=== PATIENT | female | born 1955 | race African-American/Black ===

== ENCOUNTER 2020-08-21 08:25 | Outpatient (REF) | payer MEDICARE, SELFPAY ==
[2020-08-21 09:28] LABS: Alanine Aminotransferase 10 U/L (0-31); Albumin Level 3.7 g/dL (3.5-5.0); Alkaline Phosphatase 141 U/L (39-117); Anion Gap 12 (12-20); Aspartate Amino Transferase 16 U/L (5-31); Bilirubin Total 0.4 mg/dL (0.0-1.0); Blood Urea Nitrogen 6 mg/dL (9-16); Carbon Dioxide 30 mmol/L (22-29); Chloride 107 mmol/L (96-108); Cholesterol 166 mg/dL; Estimated Glomerular Filt Rate > 60; Glucose Fasting 83 mg/dL (60-99); HDL Cholesterol 56 mg/dL; LDL Cholesterol Calculated 102 mg/dl; Potassium 4.6 mmol/l (3.3-5.1); Sodium 144 mmol/L (135-145); Triglycerides 41 mg/dL
[2020-08-21 09:51] LABS: Vitamin D 25-OH Total 22.6 ng/mL (>30)
== END 2020-08-21 08:26 | disposition home or self-care (01) ==
LOC: HO.LAB 08:25
PROVIDERS: PCP Internal Medicine; Visit Provider Internal Medicine
DX: E78.00 Pure hypercholesterolemia, unspecified (principal); E55.9 Vitamin D deficiency, unspecified
CPT/HCPCS: 80053; 80061; 82306

== ENCOUNTER 2020-09-17 11:31 | Outpatient (REF) | payer MEDICARE, SELFPAY ==
--- NOTE | 2020-09-17 11:34 | MM_ITS ---
EXAMINATION: MM SCREENING DIGITAL BREAST TOMOSYNTHESIS, RIGHT CLINICAL INFORMATION: Remote history left mastectomy 1972. Due for yearly. COMPARISON: Outside mammography 02/02/2018, 12/25/2015 ([facility]). TECHNIQUE: Digital breast tomosynthesis is performed in both the craniocaudal and mediolateral oblique views along with computer-aided detection (CAD). Synthesized 2D images are generated from the tomosynthesis. FINDINGS: There are scattered areas of fibroglandular density (ACR BI-RADS breast composition Category b). There are no significant masses, abnormal calcifications, or other abnormalities. Parenchymal pattern is similar to outside exams. The axilla and skin contours are unremarkable. MM/MM tomosynthesis screening RT IMPRESSION: No significant changes from prior outside exams. ASSESSMENT: BI-RADS 1: Negative RECOMMENDATION: Routine annual mammography screening. This patient's information was entered into a reminder system with a target due date for their next mammogram.
== END 2020-09-17 11:32 | disposition home or self-care (01) ==
LOC: HO.MAMMO 11:31
PROVIDERS: PCP Internal Medicine; Visit Provider Internal Medicine
DX: Z12.31 Encounter for screening mammogram for malignant neoplasm of breast (principal)
CPT/HCPCS: 77067

== ENCOUNTER 2020-10-18 12:46 | Outpatient (REF) | payer MEDICARE, MEDICAID, SELFPAY | END 2020-10-18 12:47 | disposition home or self-care (01) | LOC: HO.LNP 12:46 | PROVIDERS: Visit Provider Internal Medicine | DX: D47.2 Monoclonal gammopathy (principal) | CPT/HCPCS: 86335 ==

== ENCOUNTER 2020-11-07 08:48 | Outpatient (REF) | payer MEDICARE, MEDICAID, SELFPAY ==
[2020-11-07 10:28] LABS: Alanine Aminotransferase 14 U/L (0-31); Albumin Level 3.7 g/dL (3.5-5.0); Alkaline Phosphatase 137 U/L (39-117); Anion Gap 10 (12-20); Aspartate Amino Transferase 17 U/L (5-31); Bilirubin Total 0.5 mg/dL (0.0-1.0); Blood Urea Nitrogen 6 mg/dL (9-16); Calcium 9.3 mg/dL (8.4-10.2); Carbon Dioxide 30 mmol/L (22-29); Chloride 105 mmol/L (96-108); Estimated Glomerular Filt Rate > 60; Glucose Random 85 mg/dL (60-115); Potassium 4.4 mmol/L (3.3-5.1); Sodium 141 mmol/L (135-145)
[2020-11-07 11:04] LABS: Thyroid Stimulating Hormone 1.16 uIU/mL (0.32-4.0)
[2020-11-07 12:08] LABS: T4 Thyroxine 6.8 ug/dL (4.5-12.0)
[2020-11-09 04:14] LABS: Folate > 20.0 ng/mL (> or = 4.0); Vitamin B12 295 pg/mL (200-900)
== END 2020-11-07 08:49 | disposition home or self-care (01) ==
LOC: HO.LAB 08:48
PROVIDERS: PCP Internal Medicine; Visit Provider Psychiatry & Neurology Neurology
DX: G31.84 Mild cognitive impairment of uncertain or unknown etiology (principal)
CPT/HCPCS: 36415; 80053; 82607; 82746; 84436; 84443

== ENCOUNTER 2020-11-30 10:42 | Outpatient (REF) | payer MEDICARE, OTHER, SELFPAY ==
--- NOTE | ~2020-11-30 | CT_ITS ---
EXAMINATION: CT HEAD WITHOUT CONTRAST CLINICAL INFORMATION: Mild cognitive impairment COMPARISON: Previous brain MRI May [address] March 2016 TECHNIQUE: Contiguous axial imaging was performed from the skull base to vertex without intravenous administration of contrast. This CT examination was performed using dose optimization techniques as appropriate, variously including the following: *Automated exposure control *Adjustment of mA and/or kV according to patient size (this includes techniques or standardized protocols for targeted exams where dose is matched to indication/reason for exam; i.e. extremities or head) *Use of iterative reconstruction technique DLP: 636 mGy-cm FINDINGS: There is no evidence of an extra-axial collection. There is no evidence of intra-axial or extra-axial hemorrhage. The ventricles and extra-axial CSF spaces are slightly prominent suggestive of mild generalized atrophy. There is nonspecific periventricular white matter disease. No mass, mass effect or infarct is seen. There is evidence of atherosclerotic disease. There is soft tissue opacification of the left maxillary sinus. There is adjacent bony cortical thickening suggestive of chronic sinus disease. The visualized paranasal sinuses, mastoid air cells and middle ears are clear. No skull fracture is seen. CT/CT head/brain wo con IMPRESSION: Mild generalized atrophy and nonspecific periventricular white matter disease. Inflammatory changes of the left maxillary sinus, probably chronic.
== END 2020-11-30 10:43 | disposition home or self-care (01) ==
LOC: HO.CT 10:42
PROVIDERS: Visit Provider Psychiatry & Neurology Neurology
DX: G31.84 Mild cognitive impairment of uncertain or unknown etiology (principal)
CPT/HCPCS: 70450

== ENCOUNTER 2021-10-01 08:30 | Outpatient (REF) | payer MEDICARE, MEDICAID, SELFPAY ==
--- NOTE | ~2021-10-01 | MM_ITS ---
EXAMINATION: MM SCREENING DIGITAL BREAST TOMOSYNTHESIS, RIGHT CLINICAL INFORMATION: Remote left mastectomy, 1972. Due for yearly exam. COMPARISON: Mammography: 09/17/2020, 02/02/2018, 12/27/2016 TECHNIQUE: Digital breast tomosynthesis is performed in both the craniocaudal and mediolateral oblique views along with computer-aided detection (CAD). Synthesized 2D images are generated from the tomosynthesis. FINDINGS: There are scattered areas of fibroglandular density (ACR BI-RADS breast composition Category b). There are no significant masses, abnormal calcifications, or other abnormalities. MM/MM tomosynthesis screening RT IMPRESSION: No mammographic evidence of malignancy. ASSESSMENT: BI-RADS 1: Negative RECOMMENDATION: Routine annual mammography screening. This patient's information was entered into a reminder system with a target due date for their next mammogram.
== END 2021-10-01 08:31 | disposition home or self-care (01) ==
LOC: HO.MAMMO 08:30
PROVIDERS: Visit Provider Internal Medicine
DX: Z12.31 Encounter for screening mammogram for malignant neoplasm of breast (principal)
CPT/HCPCS: 77063; 77067

== ENCOUNTER 2022-01-19 08:12 | Outpatient (REF) | payer MEDICARE, SELFPAY ==
[2022-01-19 09:30] LABS: Alanine Aminotransferase 15 U/L (0-31); Albumin Level 3.9 g/dL (3.5-5.0); Alkaline Phosphatase 124 U/L (39-117); Anion Gap 12 (12-20); Aspartate Amino Transferase 20 U/L (5-31); Bilirubin Total 0.6 mg/dL (0.0-1.0); Blood Urea Nitrogen 8 mg/dL (9-16); Calcium 9.8 mg/dL (8.4-10.2); Carbon Dioxide 28 mmol/L (22-29); Chloride 106 mmol/L (96-108); Cholesterol 145 mg/dL; Estimated Glomerular Filt Rate > 60; Glucose Fasting 91 mg/dL (60-99); HDL Cholesterol 48 mg/dL; LDL Cholesterol Calculated 86 mg/dl; Potassium 3.7 mmol/L (3.3-5.1); Sodium 142 mmol/L (135-145); Total Protein 7.2 g/dL (6.5-8.0); Triglycerides 55 mg/dL
[2022-01-24 14:52] LABS: Vitamin D 25-OH, D2 <4 ng/mL; Vitamin D 25-OH, D3 28 ng/mL; Vitamin D 25-OH, Total 28 ng/mL (30-100)
== END 2022-01-19 08:13 | disposition home or self-care (01) ==
LOC: HO.LAB 08:12
PROVIDERS: PCP Internal Medicine; Visit Provider Internal Medicine
DX: E55.9 Vitamin D deficiency, unspecified (principal); E78.5 Hyperlipidemia, unspecified; I10 Essential (primary) hypertension
CPT/HCPCS: 36415; 80053; 80061; 82306

== ENCOUNTER → 2022-04-07 13:45 | Outpatient (REF) | payer MEDICARE, SELFPAY ==
--- NOTE | 2022-04-07 13:49 | CA_ITS ---
Transthoracic Echocardiogram Patient (Last, First, Middle): Francisca Ybarra R Gender: Female Date of : 1955 Age: 66 Procedure Date: 04/07/2022 Procedure Type: Transthoracic Echocardiogram Location: OP Height: 170.18 cm Weight: 79.38 kg BSA: 1.91 m2 Heart Rate: 54 bpm BP: 130 / 80 mmHg Director Risk: SARI Referring MD: Nya Rhodes MD Wellness Program Administrator: Manuel Quinn MD Symptoms: R01.1 - Cardiac murmur, unspecified Study Quality: Adequate ECG Rhythm: Bradycardia Conclusions: - 1. Normal LV systolic function with impaired relaxation filling pattern 2. Normal cardiac valvular Doppler 3. Normal RV systolic pressure 4. No pericardial effusion Findings Left Ventricle Normal left ventricular size, thickness, and systolic function. The visually estimated ejection fraction is between 65-70%. Spectral Doppler is indicative of an impaired relaxation filling pattern. E/E prime ratio is between 8 and 15 consistent with indeterminate filling pressures. Right Ventricle Normal right ventricular cavity size and systolic function. Atria The left atrium is normal in size. There is a mobile atrial septum noted. Interatrial shunt cannot be excluded. The right atrium is normal in size. Aortic Valve Normal aortic valve structure and function. There is no aortic valve stenosis. There is no aortic valve regurgitation. Mitral Valve Normal mitral valve structure and function. There is trace mitral valve regurgitation. There is no mitral valve stenosis. Pulmonic Valve The pulmonic valve was not well visualized. Tricuspid Valve Likely normal tricuspid valve structure and function. There is trace tricuspid valve regurgitation. The right ventricular systolic pressure is normal. The right ventricular systolic pressure is 29 mmHg. Normal right atrial pressure. There is no evidence of pulmonary hypertension. Great Vessels All visible segments of the aorta are normal in size. The pulmonary artery was not well visualized. Venous The inferior vena cava is normal in size and collapses greater than 50% with inspiration. Pericardium/Pleural There is no evidence of pericardial effusion. Prior Study Comparison No prior study available for comparison. Recommendations, Care & Conclusions Recommend contrast study to evaluate intracardiac shunting. Measurements 2D Linear Measurements IVSd: 1.10 0.6-0.9/0.6-1.0 cm LVIDd: 3.92 3.9-5.3/4.2-5.9 cm LVIDd Index: 2.05 2.4-3.2/2.2-3.1 cm/m2 LVIDs: 2.63 2.0-3.6 cm LVPWd: 0.71 0.7-1.1 cm LA Diam: 3.90 2.7-3.8/3.0-4.0 cm LAIDs Index: 2.04 1.5-2.3 cm/m2 LV Mass: 171.33 67-162/88-224 g LV Mass Index: 89.70 43-95/49-115 g/m2 LVOT Diam: 1.90 3.0+(-)1.3 cm 2D Systolic Function EF 4C: 74.00 >55% EF 2C: 64.20 >55% EF BiP: 70.80 >55% Mitral Valve MV Pk E: 0.55 MV PK A: 0.71 MV Decel Time: 272.00 E/A: 0.80 E'Lateral: 10.80 E'Medial: 4.35 E/E' Med: 12.60 E/E' Lat: 5.10 PHT: 80.00 MVA PHT: 2.75 Decel Vermillion: 2.02 Aortic Valve AoV Pk Mckay: 1.49 AoV Mn Mckay: 0.99 AoV VTI: 0.28 AoV Pk Grad: 9.00 Aov Mn Grad: 5.00 BRITTNY Cont.VTI: 2.51 LVOT LVOT Pk Mckay: 1.29 LVOT Mn Mckay: 0.83 LVOT VTI: 0.25 LVOT Pk Grad: 7.00 LVOT Mn Grad: 4.00 LVOT Diam: 1.90 LVOT Area: 2.84 Diastolic Function MV Pk E: 0.55 MV Pk A: 0.71 E/A: 0.80 E'Medial: 4.35 E/E' Med: 12.60 E' Laterial: 10.80 E/E' Lat: 5.10 Right Ventricle TAPSE (mm): 15.20 TVS' Mckay: 11.20 Tricuspid Valve TR Pk Mckay: 2.54 TR Pk Grad: 26.00 RA Press: 3.00 RVSP: 29.00 Great Vessels Aorta Sinus of Valsalva: 2.90 2.0-3.5 cm Ao Asc: 3.00 2.1-3.4 cm Pulmonary Valve PV Pk Mckay: 1.19 Peak PV Grad: 6.00 Updated in Other Vendor System with Status of Final Manuel Quinn MD electronically signed on 04/07/2022 4:56:09 PM with status of Final
== END ==
LOC: HO.CARD 13:45
PROVIDERS: PCP Internal Medicine; Visit Provider Internal Medicine
DX: R01.1 Cardiac murmur, unspecified (principal)
CPT/HCPCS: 93306

== ENCOUNTER 2022-04-19 09:48 | Outpatient (REF) | payer MEDICARE, SELFPAY ==
[2022-04-19 11:25] LABS: Alanine Aminotransferase 7 U/L (0-31); Alkaline Phosphatase 131 U/L (39-117); Anion Gap 15 (12-20); Aspartate Amino Transferase 18 U/L (5-31); Bilirubin Total 0.4 mg/dL (0.0-1.0); Blood Urea Nitrogen 10 mg/dL (9-16); Calcium 9.3 mg/dL (8.4-10.2); Carbon Dioxide 25 mmol/L (22-29); Chloride 107 mmol/L (96-108); Cholesterol 162 mg/dL; Estimated Glomerular Filt Rate > 60; Glucose Fasting 85 mg/dL (60-99); HDL Cholesterol 54 mg/dL; LDL Cholesterol Calculated 96 mg/dl; Potassium 3.8 mmol/L (3.3-5.1); Sodium 143 mmol/L (135-145); Total Protein 7.3 g/dL (6.5-8.0); Triglycerides 61 mg/dL
[2022-04-19 11:35] LABS: Vitamin D 25-OH Total 32.8 ng/mL (>30)
== END 2022-04-19 09:49 | disposition home or self-care (01) ==
LOC: HO.LAB 09:48
PROVIDERS: PCP Internal Medicine; Visit Provider Internal Medicine
DX: F03.90 Unspecified dementia, unspecified severity, without behavioral disturbance, psychotic disturbance, mood disturbance, and anxiety (principal); E55.9 Vitamin D deficiency, unspecified; E78.5 Hyperlipidemia, unspecified; Z85.3 Personal history of malignant neoplasm of breast
CPT/HCPCS: 36415; 80053; 80061; 82306

== ENCOUNTER 2022-08-26 10:12 | Outpatient (REF) | payer MEDICARE, SELFPAY ==
--- NOTE | ~2022-08-26 | XR_ITS ---
EXAMINATION: OSSEOUS SURVEY, COMPLETE CLINICAL INFORMATION: Evaluate for lytic bone lesions. COMPARISON: Chest x-ray March 2016. TECHNIQUE: The following images were obtained: Lateral view of the skull, lateral view of the cervical spine, AP and lateral views of the thoracic spine, AP and lateral views of the lumbosacral spine, PA view of the chest, AP view the pelvis, and AP views of both upper and lower extremities to include the humeri, femora, and lower legs. FINDINGS: There is osteoarthritis of the left glenohumeral joint. There is multilevel spondylosis of the cervical spine with degenerative disc changes noted from C3-C4 through C7-T1. There is mild spondylosis of the dorsal spine. XR/XR bone survey IMPRESSION: No lytic bone lesions.
== END 2022-08-26 10:13 | disposition home or self-care (01) ==
LOC: HO.XRAY 10:12
PROVIDERS: PCP Internal Medicine; Visit Provider Internal Medicine
DX: D47.2 Monoclonal gammopathy (principal)
CPT/HCPCS: 77075

== ENCOUNTER 2022-10-06 08:03 | Outpatient (REF) | payer MEDICARE, SELFPAY ==
--- NOTE | ~2022-10-06 | MM_ITS ---
EXAMINATION: MM SCREENING DIGITAL BREAST TOMOSYNTHESIS, RIGHT CLINICAL INFORMATION: Screening. Asymptomatic. Status post left mastectomy. COMPARISON: Mammography: October 01, 2021 and studies dating back to December 25, 2015 TECHNIQUE: Digital breast tomosynthesis is performed in both the craniocaudal and mediolateral oblique views along with computer-aided detection (CAD). Synthesized 2D images are generated from the tomosynthesis. FINDINGS: The breasts are almost entirely fatty (ACR BI-RADS breast composition Category a). There are no significant masses, abnormal calcifications, or other abnormalities. MM/MM tomosynthesis screening RT IMPRESSION: No significant changes from prior exam. ASSESSMENT: BI-RADS 1: Negative RECOMMENDATION: Routine annual mammography screening. This patient's information was entered into a reminder system with a target due date for their next mammogram.
== END 2022-10-06 08:04 | disposition home or self-care (01) ==
LOC: HO.MAMMO 08:03
PROVIDERS: PCP Internal Medicine; Visit Provider Internal Medicine
DX: Z12.31 Encounter for screening mammogram for malignant neoplasm of breast (principal)
CPT/HCPCS: 77063; 77067

== ENCOUNTER 2022-12-20 10:43 | Outpatient (REF) | payer MEDICARE, SELFPAY ==
[2022-12-20 12:28] LABS: Alanine Aminotransferase 9 U/L (0-31); Albumin Level 3.7 g/dL (3.5-5.0); Alkaline Phosphatase 154 U/L (39-117); Anion Gap 15 (12-20); Aspartate Amino Transferase 17 U/L (5-31); Bilirubin Total 0.4 mg/dL (0.0-1.0); Blood Urea Nitrogen 11 mg/dL (9-16); Calcium 9.1 mg/dL (8.4-10.2); Carbon Dioxide 26 mmol/L (22-29); Chloride 105 mmol/L (96-108); Cholesterol 150 mg/dL; Estimated Glomerular Filt Rate > 60; Glucose Fasting 86 mg/dL (60-99); HDL Cholesterol 52 mg/dL; LDL Cholesterol Calculated 91 mg/dl; Potassium 3.5 mmol/L (3.3-5.1); Sodium 142 mmol/L (135-145); Total Protein 6.9 g/dL (6.5-8.0); Triglycerides 37 mg/dL; Vitamin D 25-OH Total 40.6 ng/mL (>30)
== END 2022-12-20 10:44 | disposition home or self-care (01) ==
LOC: HO.LAB 10:43
PROVIDERS: PCP Internal Medicine; Visit Provider Internal Medicine
DX: E55.9 Vitamin D deficiency, unspecified (principal); E78.5 Hyperlipidemia, unspecified; I10 Essential (primary) hypertension
CPT/HCPCS: 36415; 80053; 80061; 82306

== ENCOUNTER 2023-05-12 16:44 | Emergency (ER) | payer MEDICARE, SELFPAY ==
--- NOTE | 2023-05-12 | ECG_ITS ---
Test Reason : BRADYCARDIA Blood Pressure : / mmHG Vent. Rate : 045 BPM Atrial Rate : 045 BPM P-R Int : 184 ms QRS Dur : 080 ms QT Int : 478 ms P-R-T Axes : 116 -11 016 degrees QTc Int : 413 ms Sinus bradycardia Anterior infarct , age undetermined Nonspecific T wave abnormality Abnormal ECG When compared with ECG of 08-JUL-2016 09:39, No significant change was found Referred By: Generic ED Physician Electronically Signed By:ERIC STANTON
--- NOTE | ~2023-05-12 | CT_ITS ---
EXAMINATION: CT HEAD WITHOUT CONTRAST CLINICAL INFORMATION: Delirium. COMPARISON: CT head 11/30/2020. TECHNIQUE: Contiguous axial imaging was performed from the skull base to vertex without intravenous administration of contrast. This CT examination was performed using dose optimization techniques as appropriate, variously including the following: *Automated exposure control *Adjustment of mA and/or kV according to patient size (this includes techniques or standardized protocols for targeted exams where dose is matched to indication/reason for exam; i.e. extremities or head) *Use of iterative reconstruction technique DLP: 570 mGy-cm FINDINGS: There is no evidence of acute intracranial hemorrhage or edematous territorial infarction. Scattered hypoattenuation in the periventricular and deep white matter are consistent with moderate microangiopathy. Chronic bilateral basal ganglia lacunar infarcts as well as chronic very small left posteroinferior cerebellar infarction. Mild mineralization of the basal ganglia. Whaley-white matter differentiation is preserved. Proportional prominence of the ventricles and sulcal spaces. No evidence for obstructive hydrocephalus. No abnormal mass effect or midline shift. No extra-axial fluid collections. No acute soft tissue or osseous abnormalities. The mastoid air cells and paranasal sinuses are clear. CT/CT head/brain wo IV con IMPRESSION: 1. No evidence of acute intracranial hemorrhage or edematous territorial infarction. 2. Chronic microangiopathy and generalized cerebral volume loss.
[2023-05-12 16:46] VITALS: BP 150/90; PULSE 50; O2SAT 97
[2023-05-12 16:48] VITALS: BP 148/66; PULSE 43; RESP 15; TEMP 36.4; O2SAT 98; BMI 26.2
[2023-05-12 17:08] LABS: MANUAL DIFF FLAG NO
[2023-05-12 17:14] LABS: Basophils Percent Auto 0.9 % (0-2); Eosinophils Absolute Auto 0.2 X10*3/uL (0.0-0.4); Eosinophils Percent Auto 5.5 % (0-4); Hematocrit 38.3 % (37.0-47.0); Hemoglobin 12.1 g/dl (12.0-16.0); Imm Gran Abs Auto 0.01 X10*3/uL (0.00-0.03); Imm Gran Pct Auto 0.3 % (0.0-0.4); Lymphocytes Percent Auto 57.1 % (20-40); Mean Corpuscular HGB Conc 31.6 g/dl (31.0-35.0); Mean Corpuscular Hemoglobin 27.9 pg (27.0-33.0); Mean Corpuscular Volume 88.2 fL (80.0-98.0); Mean Platelet Volume 10.4 fL (9.4-12.3); Monocytes Absolute Auto 0.2 X10*3/uL (0.1-1.2); Neutrophils Percent Auto 29.2 % (45-73); Platelet Count 165 X10*3/uL (160-400); Red Blood Count 4.34 X10*6/uL (4.20-5.50); Red Cell Distribution Width 14.6 % (11.0-16.0); White Blood Count 3.5 X10*3/uL (4.8-10.8)
[2023-05-12 17:43] LABS: Alanine Aminotransferase 13 U/L (0-31); Albumin Level 3.8 g/dL (3.5-5.0); Alkaline Phosphatase 148 U/L (39-117); Anion Gap 13 (12-20); Aspartate Amino Transferase 24 U/L (5-31); Bilirubin Total 0.4 mg/dL (0.0-1.0); Blood Urea Nitrogen 7 mg/dL (9-16); Calcium 9.2 mg/dL (8.4-10.2); Carbon Dioxide 26 mmol/L (22-29); Chloride 106 mmol/L (96-108); Creatinine Clr Calc Pharmacy 74.3; Estimated Glomerular Filt Rate > 60; Glucose Random 88 mg/dL (60-115); Potassium 3.4 mmol/L (3.3-5.1); Sodium 142 mmol/L (135-145); Total Protein 7.8 g/dL (6.5-8.0)
--- NOTE | 2023-05-12 18:08 | ED.AMS ---
HPI - Altered Mental Status General Chief Complaint: Altered Mental Status Stated Complaint: dementia, adult protec. services wants eval. Time Seen by Provider: 05/12/23 17:47 Source: patient Mode of arrival: EMS Limitations: other (poor historian ) History of Present Illness HPI narrative: 68 yo female with hx of memory loss, HTN, hyperlipidemia, dementia, hx of depression, breast cancer here with concerns for safety at home - brother notes the patient was in the shower for 6 hours yesterday. The patient states she is okay and does okay on her own she has no complaints and is aware she is here due to safety concerns. MD complaint: other (worsening ability to care for herself ) Onset (ago): month(s) Timing confirmed by: family member Severity: moderate Consistency of symptoms: getting Worse Context: history of similar presentation Associated symptoms: denies other symptoms Related Data Home Medications Medication Instructions Recorded Confirmed memantine 10 mg tablet 10 mg PO BID 12/22/20 05/12/23 donepezil 10 mg tablet 10 mg PO DAILY 05/12/23 05/12/23 trazodone 50 mg tablet 50 mg PO BEDTIME 05/12/23 05/12/23 Previous Rx's Medication Instructions Recorded mastectomy bra (bra, mastectomy) #1 ea 10/28/20 Bra With Left Mastectomy Posthesis #1 ea 04/21/21 mastectomy bra #1 ea 02/18/22 cholecalciferol (vitamin D3) 50 50 mcg PO DAILY #90 tabs 09/19/22 mcg (2,000 unit) tablet (Vitamin D3) sertraline 100 mg tablet 100 mg PO DAILY 90 days #90 tabs 12/05/22 rosuvastatin 20 mg tablet 20 mg PO DAILY 90 days #90 tabs 02/26/23 folic acid 1 mg tablet 1 mg PO DAILY 90 days #90 tabs 03/08/23 amlodipine 5 mg tablet 5 mg PO DAILY 90 days #90 tabs 03/16/23 Allergies Allergy/AdvReac Type Severity Reaction Status Date / Time No Known Allergies Allergy Verified 12/26/22 08:24 Review of Systems Review of Systems: Constitutional : No Fever, No Chills, No Fatigue ENT/Mouth : No sore throat, No Rhinorrhea Eyes: No Eye Pain, No Swelling, No Redness Cardiovascular : No Chest Pain, No SOB, No Dyspnea on Exertion Respiratory : No Cough, No Sputum Gastrointestinal : No Nausea, No Vomiting, No Diarrhea, No abdominal Pain Genitourinary : No Dysuria, No Urinary Frequency, No Hematuria, Musculoskeletal : No joint pain, No Myalgias, No Joint Swelling Skin : No Skin Lesions, No rash Neuro : No Weakness, No Numbness, No Dizziness, no Headache Psych : No Anxiety/Panic, No Depression All other systems reviewed and are negative [facility] Past Medical History Source: old records reviewed Medical History Anemia Constipation by delayed colonic transit Dementia Depression Dyslipidemia Essential hypertension History of breast cancer Hypovitaminosis D Insomnia Memory loss Mild major depression, single episode Urge urinary incontinence Surgical History H/O total mastectomy of left breast Family History Family History Father Diabetes Hypertension Cancer Mother Dementia Family/Other FH: mental illness Social History Social History Household Members: None Housing: Apartment Are you a primary customer care specialist to a significant other at home: No Do you presently have visiting nurse or other home services: No Alcohol intake: never Patient Tobacco Use Status: Former Tobacco user Quit Date: 08/2021 Tobacco use type: Cigarette Cigarettes Per Day: 1 Smoked in Last 30 Days: No e-Cigarette/Vaping Use: Never Used Second Hand Smoke Exposure: No Use of substances other than those prescribed or required for medical reasons: No Advance Directives: Yes Advance Directives on File: Yes Advance Directives Date on File: 12/22/20 service: No Current occupational status: unemployed Current occupational exposures/hazards: No Cognitive needs: No Hearing needs: No Vision needs: Yes Physical Exam ED Vital Signs: Vital Signs - 24 hr 05/12/23 16:48 05/12/23 19:21 05/12/23 22:34 Temperature 97.6 F 97.6 F 97.6 F Pulse Rate 43 L 46 L 47 L Respiratory Rate 15 16 18 Blood Pressure 148/66 H 148/49 H 147/55 H Pulse Oximetry 98 99 100 Oxygen Delivery Method Room Air Room Air Room Air 05/12/23 23:52 Temperature 97.3 F Pulse Rate 47 L Respiratory Rate 16 Blood Pressure 132/61 Pulse Oximetry 96 Oxygen Delivery Method Room Air BMI result Body Mass Index 26.2 Appearance: Alert. Oriented X2 (confused on year states 1954). No acute distress. Eyes: Pupils equal, round and reactive to light. ENT: Pharynx normal. Neck: Normal inspection. Neck supple. CVS: Normal heart rate and rhythm. Pulses normal. Respiratory: No respiratory distress. Breath sounds normal. Abdomen: Soft and nontender. Skin: Skin warm and dry. Normal skin color. Normal skin turgor. Extremities: No lower extremity edema. No calf ttp Neuro: Oriented X 2. No motor deficit. No sensory deficit. Course Course Course Narrative: Patient placed in physician observation at 653pm. The indication for observation is that the patient needs more time to see case management for safe discharge planning. At this time the patient is well developed well nourished, lungs clear, CV RRR, abd nontender, neuro is intact. Medications Administered Generic Name Dose Route Start Last Admin Trade Name Freq PRN Reason Stop Dose Admin Trazodone HCl 50 mg 05/13/23 01:00 05/13/23 01:40 Trazodone Hcl 50 Mg Tablet PO 50 mg BEDTIME KENNETH Administration Medical Decision Making Medical Decision Making [facility] Narrative: 68 yo female with hx of memory loss, HTN, hyperlipidemia, dementia, hx of depression, breast cancer here with worsening ability to care for herself in setting of dementia she is well kept and clean I see no signs of trauma to be complete given worsening confusion I am going to obtain labs, UA and CT head to rule out infection or brain mass given hx of breast cancer. Will refer to CM. Differential Diagnosis Differential Diagnoses: The differential diagnosis associated with the presentation includes dementia, UTI Admission/Observation Consideration of admission/observation: Escalation of care including admission/observation considered observe until safe discharge Consult Healthcare Provider Management of the patient was discussed with: Leadership Development Instructor (case mgr) Lab Data [facility] Lab Attestation statement: I reviewed the patient's lab results. 05/12/23 17:03 05/12/23 17:03 Labs: Lab Results 05/12/23 05/12/23 05/12/23 Range/Units 17:03 17:03 18:44 WBC 3.5 L (4.8-10.8) X10*3/uL RBC 4.34 (4.20-5.50) X10*6/uL Hgb 12.1 (12.0-16.0) g/dl Hct 38.3 (37.0-47.0) % MCV 88.2 (80.0-98.0) fL MCH 27.9 (27.0-33.0) pg MCHC 31.6 (31.0-35.0) g/dl RDW 14.6 (11.0-16.0) % Plt Count 165 (160-400) X10*3/uL MPV 10.4 (9.4-12.3) fL Immature Gran % (Auto) 0.3 (0.0-0.4) % Neut % (Auto) 29.2 L (45-73) % Lymph % (Auto) 57.1 H (20-40) % [place] % (Auto) 7.0 (2-11) % Eos % (Auto) 5.5 H (0-4) % Baso % (Auto) 0.9 (0-2) % Lymph # (Auto) 2.0 (1.2-4.9) X10*3/uL [place] # (Auto) 0.2 (0.1-1.2) X10*3/uL Eos # (Auto) 0.2 (0.0-0.4) X10*3/uL Baso # (Auto) 0.0 (0.0-0.2) X10*3/uL Abs Immat Gran (auto) 0.01 (0.00-0.03) X10*3/uL Absolute Neuts (auto) 1.0 L (2.0-8.3) x10*3/uL Absolute Nucleated RBC 0.000 (0.0-0.012) X10*3/uL Nucleated RBC % (auto) 0.0 (0.0-0.2) /100WBC Sodium 142 (135-145) mmol/L Potassium 3.4 (3.3-5.1) mmol/L Chloride 106 (96-108) mmol/L Carbon Dioxide 26 (22-29) mmol/L Anion Gap 13 (12-20) BUN 7 L (9-16) mg/dL Creatinine 0.76 (0.5-1.4) mg/dL Estim Creat Clear Calc 74.3 Estimated GFR > 60 Random Glucose 88 (60-115) mg/dL Calcium 9.2 D (8.4-10.2) mg/dL Total Bilirubin 0.4 (0.0-1.0) mg/dL AST 24 (5-31) U/L ALT 13 (0-31) U/L Alkaline Phosphatase 148 H (39-117) U/L Total Protein 7.8 (6.5-8.0) g/dL Albumin 3.8 (3.5-5.0) g/dL Urine Color Yellow Urine Appearance Clear Urine pH 7.5 (5.0-9.0) Ur Specific [place] 1.015 (1.005-1.025) Urine Protein Trace (Neg-Trace) mg/dL Urine Glucose (UA) Negative (Negative) mg/dL Urine Ketones Negative (Negative) mg/dL Urine Blood Negative (Negative) Urine Nitrite Negative (Negative) Ur Leukocyte Esterase Negative (Negative) Independent Interpretation I performed an independent interpretation of an: EKG and CT Scan (no ICH) Interpretation: Rate: 45 Rhythm: sinus bradycardia Tell: left Normal P waves. Normal KYLIE. Normal QRS complex. ST T wave : no DARRYN qTC: normal prior studies: no acute ischemia The study has been interpreted contemporaneously by me. . Radiology Impression Discussion of test interpretation with radiology: I have reviewed the radiologist's reading. External Record Review External record reviewed: Inpatient record Discharge Plan Discharge Clinical Impression: Dementia Qualifiers: Dementia type: unspecified type Dementia severity: moderate Dementia behavioral or psychological symptom: without behavioral, psychotic, or mood disturbance or anxiety Qualified Code(s): F03.B0 - Unspecified dementia, moderate, without behavioral disturbance, psychotic disturbance, mood disturbance, and anxiety Patient Disposition: Still a Patient Prescriptions: No Action cholecalciferol (vitamin D3) [Vitamin D3] 50 mcg (2,000 unit) tablet 50 mcg PO DAILY Qty: 90 2RF sertraline 100 mg tablet 100 mg PO DAILY 90 Days Qty: 90 1RF rosuvastatin 20 mg tablet 20 mg PO DAILY 90 Days Qty: 90 3RF folic acid 1 mg tablet 1 mg PO DAILY 90 Days Qty: 90 1RF amlodipine 5 mg tablet 5 mg PO DAILY 90 Days Qty: 90 3RF (DME) bra, mastectomy Crystals Qty: 1 6RF Rx Instructions: As Directed (DME) mastectomy bra Crystals Qty: 1 0RF Rx Instructions: As Directed donepezil 10 mg tablet 10 mg PO DAILY trazodone 50 mg tablet 50 mg PO BEDTIME memantine 10 mg tablet 10 mg PO BID (DME) Bra With Left Mastectomy Posthesis ask Qty: 1 0RF Rx Instructions: As Directed
--- NOTE | 2023-05-12 18:48 | PC.NURSE ---
patient ambulatory to and from bathroom with steady gait urine sample collected and sent to lab
[2023-05-12 19:03] LABS: Appearance Urine Clear; Color Urine Yellow; Glucose Urine UA Negative (Negative); Leukocyte Esterase Urine Negative (Negative); Nitrite Urine Negative (Negative); PH 7.5 (5.0-9.0); Specific Gravity - Urine 1.015 (1.005-1.025); Urine Blood Negative (Negative); Urine Ketones Negative (Negative); Urine Protein Trace mg/dL (Neg-Trace)
[2023-05-12 19:21] VITALS: BP 148/49; PULSE 46; RESP 16; TEMP 36.4; O2SAT 99
--- NOTE | 2023-05-12 21:56 | PHA.MEDREC ---
Pharmacy Consult ? Medication Reconciliation Pharmacy has completed the medication reconciliation. Spoke with patient's sister in law to confirm medications. Arianna Ridley, MilD
--- NOTE | 2023-05-12 22:10 | MHC.CM.ED ---
Pt with AMS and a diagnosis of dementia and memory loss. Brought into ED by brother/HCP Marisa Ybarra ([phone]) with concerns for increasing dementia and inability to care for herself. Per Baldemar, pt has been wandering in her elderly housing and the METER MAINTENANCE PERSON reported that patient should not be living alone. Pt has very poor memory, including STM and LTM. Brother states patient took a shower for 6 hours yesterday and he is afraid she will leave the stove on, and cannot remember how to use the microwave. States both he and his have been caring for her, shopping, meal prep and transportation to doctors visits. States patient has a METER MAINTENANCE PERSON 3 times a week for 2 hours/day. METER MAINTENANCE PERSON helps with housekeeping and showering. Pt does not remember having a METER MAINTENANCE PERSON, but does state her brother helps her. Pt has no other family. Brother feels patient can no longer care for herself and he wants her placed in equipment operator intermodal yard care. Pt does not remember if she has any medical problems and thinks her brother helps her with her medications. Brother is unsure if patient takes medications he sets up. Pt is vaccinated with [employer] x4. HCP on file. Brother states he is her POA. Will bring in paperwork tomorrow. Pt has no payor source for LTC and will need assistance with completing MH application. Referral made to financial services via fax. Contact information given to brother on telephone. ALBERTO explained that patient will not be admitted to [facility] and if she cannot go home with help or to his home, then patient will remain in the ED or OverFlow unit until MH application is completed and LTC placement is made. Brother is aware that this process can take several weeks, but once MH application is completed, a copy can be sent to facilities that offer a bed. Brother aware that LTC beds are limited in our area; that local referrals will be made and that referrals may need to be made farther into [place]. Both brother and his are agreeable that this patient is not safe to go home and that they cannot care for her at home. CM contact card and financial services brochure left for family in the morning. Brother aware that a psych consult for capacity has been ordered and that if she doesn't have capacity to make medical decisions, then the HCP will be invoked and he will need to make medical decisions for his sister. Pt will also have a PT consult. No referrals made at this time. Will make referrals when MH application is complete. CM will follow for discharge planning.
[2023-05-12 22:34] VITALS: BP 147/55; PULSE 47; RESP 18; TEMP 36.4; O2SAT 100
[2023-05-12 23:52] VITALS: BP 132/61; PULSE 47; RESP 16; TEMP 36.3; O2SAT 96
--- NOTE | 2023-05-13 | MHC.EDTECH ---
this pct assumed care of pt at 2300 ,vitals sign taken ,pt belonging list done ,pt drank 120 ml juice ,pt resting quietly in bed .
[2023-05-13] MEDS: traZODone HCL 50 MG TABLET PO ×2 (01:40→20:25)
[2023-05-13 06:29] VITALS: BP 138/53; PULSE 44; RESP 17; TEMP 36.9; O2SAT 100
--- NOTE | 2023-05-13 07:26 | PC.NURSE ---
pt sleeping in bed at this time; respirations even and unlabored. call chaudhry within reach.
[2023-05-13 08:00] VITALS: BP 126/61; PULSE 42; RESP 14; TEMP 36.8; O2SAT 100
[2023-05-13] MEDS: Memantine HCl 10 MG TABLET PO ×2 (08:27→20:25)
[2023-05-13] MEDS: Folic Acid 1 MG TABLET PO (08:27)
[2023-05-13] MEDS: Atorvastatin Calcium 80 MG TABLET PO (08:27)
[2023-05-13] MEDS: amLODIPine Besylate 5 MG TABLET PO (08:27)
[2023-05-13] MEDS: Sertraline HCL 100 MG TABLET PO (08:27)
[2023-05-13] MEDS: Donepezil HCl 10 MG TABLET PO (08:27)
[2023-05-13] MEDS: Cholecalciferol (Vitamin D3) 25 MCG TABLET 50 MCG PO (08:27)
[2023-05-13 10:14] VITALS: BP 122/69; PULSE 45; RESP 12; TEMP 36.9; O2SAT 99
--- NOTE | 2023-05-13 15:11 | PM.PSYCN ---
History of Present Illness Date of Service: 05/13/23 Chief Complaint: dementia, adult protec. services wants eval. Reason for Consult: capacity determination Requesting physician: Isabella Echavarria Discussed with referring provider: Yes Sources of Information: patient interviewed and chart reviewed Additional Sources of Information: Brother Marisa [phone] [facility] Narrative: The patient is a 68 year old single female. She lives alone in [place]. For this consultation I met with the patient, spoke with her brother Baldemar and discussed with the emergency room physician. Patient has a history of dementia and depression. Her brother reports that the patient's memory has been getting worse. He has grown increasingly concerned about her ability to take care of her self. 2 days ago the patient was in the shower for 6 hours and did not open the door for her health aide or for her meals on wheels. She reports that he has been going to her house every day to give her medications because she would otherwise forget and take a whole week worth of medications in 1 day. He says that on the day of her admission to the emergency room a social contact worker from elderly protective Services was visiting her in her house and she was increasingly concerned about her memory and disorientation and worried about her living on own and she recommended transfer to the emergency room. Brother feels that she is unable to live on her own. He reports she has a history of dementia for past 3 years. She has a history of depression and but no SI. The patient didn't know where she was. When told she was in the hospital she was unable to state where she was. When told she is in the hospital she said that she is here because she has an appointment (interview done in ED) and that she is going to the [employer] afterwards. She was disoriented to date saying it is eight, five... and didn't know the year. She didn't know her phone number. She was pleasant and cooperative with the interview with attempts at confabulating information. She denied SI. No hallucinations. Past Psychiatric History: Depression. Medical Evaluation Reviewed: Yes [facility] Medical History Anemia Constipation by delayed colonic transit Dementia Depression Dyslipidemia Essential hypertension History of breast cancer Hypovitaminosis D Insomnia Memory loss Mild major depression, single episode Urge urinary incontinence Surgical History H/O total mastectomy of left breast Family History: Mother with dementia passed 3 years ago Social History: Never . No children. Worked at a bank. Brother is her main support. Substance History: No Diagnostics Vital Signs (24Hr): Vital Signs - 24 hr 05/12/23 16:48 05/12/23 19:21 05/12/23 22:34 Temperature 97.6 F 97.6 F 97.6 F Pulse Rate 43 L 46 L 47 L Respiratory Rate 15 16 18 Blood Pressure 148/66 H 148/49 H 147/55 H Pulse Oximetry 98 99 100 Oxygen Delivery Method Room Air Room Air Room Air 05/12/23 23:52 05/13/23 06:29 05/13/23 08:00 Temperature 97.3 F 98.4 F 98.3 F Pulse Rate 47 L 44 L 42 L Respiratory Rate 16 17 14 Blood Pressure 132/61 138/53 L 126/61 Pulse Oximetry 96 100 100 Oxygen Delivery Method Room Air Room Air Room Air 05/13/23 10:14 Temperature 98.4 F Pulse Rate 45 L Respiratory Rate 12 Blood Pressure 122/69 Pulse Oximetry 99 Oxygen Delivery Method Room Air BMI result Body Mass Index 26.2 Labs 05/12/23 17:03 05/12/23 17:03 Labs: Laboratory Results - last 48 hr 05/12/23 05/12/23 05/12/23 17:03 17:03 18:44 WBC 3.5 L RBC 4.34 Hgb 12.1 Hct 38.3 MCV 88.2 MCH 27.9 MCHC 31.6 RDW 14.6 Plt Count 165 MPV 10.4 Immature Gran % (Auto) 0.3 Neut % (Auto) 29.2 L Lymph % (Auto) 57.1 H Wright % (Auto) 7.0 Eos % (Auto) 5.5 H Baso % (Auto) 0.9 Lymph # (Auto) 2.0 Wright # (Auto) 0.2 Eos # (Auto) 0.2 Baso # (Auto) 0.0 Abs Immat Gran (auto) 0.01 Absolute Neuts (auto) 1.0 L Absolute Nucleated RBC 0.000 Nucleated RBC % (auto) 0.0 Sodium 142 Potassium 3.4 Chloride 106 Carbon Dioxide 26 Anion Gap 13 BUN 7 L Creatinine 0.76 Estim Creat Clear Calc 74.3 Estimated GFR > 60 Random Glucose 88 Calcium 9.2 D Total Bilirubin 0.4 AST 24 ALT 13 Alkaline Phosphatase 148 H Total Protein 7.8 Albumin 3.8 Urine Color Yellow Urine Appearance Clear Urine pH 7.5 Ur Specific Luc[place] 1.015 Urine Protein Trace Urine Glucose (UA) Negative Urine Ketones Negative Urine Blood Negative Urine Nitrite Negative Ur Leukocyte Esterase Negative Imaging Radiology Impressions: ITS Impressions Head CT 05/12/23 18:37 IMPRESSION: 1. No evidence of acute intracranial hemorrhage or edematous territorial infarction. 2. Chronic microangiopathy and generalized cerebral volume loss. Mental Status Exam Mental Status Exam Patient Appearance: Appropriate Level of Consciousness: Awake and Appropriate Patient Behavior: Cooperative, Confused and Good Eye Contact Mood Description: Calm Affect Description: Calm Patient Cognition Impaired: Yes Ability to Follow Directions: Fair Speech Pattern: Clear, Impoverished, Difficulty Finding Words and Coherent Memory Description: Remote Impaired (didn;t know what she did for a living other than [facility]. Didn't know she worked at a bank for years (per brother.)), Immediate Impaired (registered 1 out of 3 objects), Chcf Impaired, Episodic Impaired, Recent Impaired and Working Impaired Hallucinations: None Delusions: Not Present Thought Process: Disoriented Thought Content: positive for Disoriented, positive for Poverty of Content and positive for Slowed Thinking Judgement: Poor Medications Medications Current Medications Amlodipine Besylate (Amlodipine Besylate 5 Mg Tablet) 5 mg PO DAILY [facility]; Protocol Last Admin: 05/13/23 08:27 Dose: 5 mg Atorvastatin Calcium (Atorvastatin Calcium 80 Mg Tablet) 80 mg PO DAILY [facility] Last Admin: 05/13/23 08:27 Dose: 80 mg Donepezil HCl (Donepezil Hcl 10 Mg Tablet) 10 mg PO DAILY [facility] Last Admin: 05/13/23 08:27 Dose: 10 mg Folic Acid (Folic Acid 1 Mg Tablet) 1 mg PO DAILY [facility] Last Admin: 05/13/23 08: Dose: 1 mg Memantine (Memantine Hcl 10 Mg Tablet) 10 mg PO BID [facility] Last Admin: 05/13/23 08:27 Dose: 10 mg Sertraline HCl (Sertraline Hcl 100 Mg Tablet) 100 mg PO DAILY [facility] Last Admin: 05/13/23 08:27 Dose: 100 mg Trazodone HCl (Trazodone Hcl 50 Mg Tablet) 50 mg PO BEDTIME [facility] Last Admin: 05/13/23 01:40 Dose: 50 mg Vitamin D (Cholecalciferol (Vitamin D3) 25 Mcg Tablet) 50 mcg PO DAILY [facility] Last Admin: 05/13/23 08:27 Dose: 50 mcg Allergies Allergies Allergy/AdvReac Type Severity Reaction Status Date / Time No Known Allergies Allergy Verified 12/26/22 08:24 Assessment & Plan Assessment & Plan (1) Dementia: Qualifiers: Dementia behavioral or psychological symptom: without behavioral, psychotic, or mood disturbance or anxiety Dementia severity: moderate Dementia type: unspecified type Qualified Code(s): F03.B0 - Unspecified dementia, moderate, without behavioral disturbance, psychotic disturbance, mood disturbance, and anxiety Status: Acute Code(s): F03.90 - Unspecified dementia, unspecified severity, without behavioral disturbance, psychotic disturbance, mood disturbance, and anxiety Assessment and Plan: 68 yo female with hx of memory loss, HTN, hyperlipidemia, dementia, hx of depression, breast cancer here with concerns for safety at home - brother notes the patient was in the shower for 6 hours. The patient states she is okay and does okay on her own she has no complaints Patient's memory and dementia have been progressive. She is pleasantly but severely confused and disoriented with no evidence of delirium. She has very poor memory and understanding of why she is in the hospital. She has significant immediate and short memory impairment. Her brother has been increasingly concerned about her ability to live on her own. She lacks insight into the reason she is in the hospital. She has been calm and cooperative. - Patient lacks capacity to make a safe plan for living on her own. - Patient is not in need of inpatient psychiatric hospitalization. - Case management and social work to help with a safe disposition plan. Total time managing care of this patient today ____ minutes.
[2023-05-13 15:42] VITALS: BP 120/61; PULSE 57; RESP 18; TEMP 37.2; O2SAT 99
--- NOTE | 2023-05-13 17:37 | PC.NURSE ---
pt attempting to leave bed. ambulated to bathroom with steady gait. pt given ice cream and word searches per request. bed alarm armed. call chaudhry within reach.
--- NOTE | 2023-05-13 19:03 | PC.NURSE ---
This RN assumed care of this patient at 1900. Pt attempted exiting bed, this RN assisted patient back to bed. Provided with ice cream and activites to keep busy. Pt calm and cooperative, easily redirectable. No apparent distress at this time
--- NOTE | 2023-05-13 22:01 | PC.NURSE ---
pt sleeping at this time, respirations even and unlabored, skin pwd, no apparent distress
--- NOTE | 2023-05-14 01:11 | PC.NURSE ---
pt sleeping at this time, respirations even and unlabored, skin pwd, no apparent distress. Continue plan of care for CM review
[2023-05-14 05:31] VITALS: BP 123/65; PULSE 48; RESP 17; TEMP 36.6; O2SAT 99
[2023-05-14 06:00] VITALS: BP 119/63; PULSE 50; RESP 18; O2SAT 100
--- NOTE | 2023-05-14 07:32 | PC.NURSE ---
patient sleeping, woke to verbal stimulus, patient alert to self only, denies pain/discomfort, vss, pt sitting up eating breakfast, call chaudhry within reach, will continue to monitor
[2023-05-14] MEDS: Cholecalciferol (Vitamin D3) 25 MCG TABLET 50 MCG PO (08:32)
[2023-05-14] MEDS: Folic Acid 1 MG TABLET PO (08:32)
[2023-05-14] MEDS: amLODIPine Besylate 5 MG TABLET PO (08:32)
[2023-05-14] MEDS: Memantine HCl 10 MG TABLET PO ×2 (08:33→20:26)
[2023-05-14] MEDS: Sertraline HCL 100 MG TABLET PO (08:33)
[2023-05-14] MEDS: Atorvastatin Calcium 80 MG TABLET PO (08:33)
[2023-05-14] MEDS: Donepezil HCl 10 MG TABLET PO (08:33)
--- NOTE | 2023-05-14 08:34 | PC.NURSE ---
pt medicated per order- pills whole with water
[2023-05-14 10:54] VITALS: BP 126/57; PULSE 52; RESP 16; TEMP 36.8; O2SAT 99
--- NOTE | 2023-05-14 10:55 | PC.NURSE ---
pt a&ox3, vss, pt verbalizing 0/10 pain francisco. pt resting comfortably in no apparent distress while using coloring book. call chaudhry placed within reach.
--- NOTE | 2023-05-14 13:42 | PC.NURSE ---
pt becoming slightly confused, attempted to get out of bed and tell this rn that she was leaving. pt reminded that she was here to see case management. pt ambulated to restroom, brought back to bed and is now coloring peacefully. tech called pt's primary contact (brother) to give brother an update on pt's status. call chaudhry placed within reach.
[2023-05-14 14:00] VITALS: BP 134/63; PULSE 60; RESP 18; TEMP 36.5; O2SAT 98
--- NOTE | 2023-05-14 15:06 | PC.NURSE ---
patient alert to self only, pt got oob with a tech to the bathroom ambulated with tech with steady gait, when patient ambulated back to room- pt put her own clothes on and wanted to leave, attempts to reorient the patient were unsuccessful, this nurse spoke with the patient about where she was and why she needed to dress in our hospital attire, pt became tearful and stated she was so confused, with the help of this nurse the patient put hospital attire back on- bed alarm re-set, fall precautions intact, will place a camera in room for additional safety and speak with charge nurse about where we can put patients clothes so she isnt tempted to get dressed to leave again.
--- NOTE | 2023-05-14 15:30 | PC.NURSE ---
ptt verbalizing no pain francisco, resting comfortably in no apparent distress doing word search. call chaudhry placed within reach.
[2023-05-14] MEDS: traZODone HCL 50 MG TABLET PO (20:26)
--- NOTE | 2023-05-15 07:31 | PC.NURSE ---
Pt currently sleeping, no apparent pain or discomfort noted, call chaudhry with in reach, camera at bed side.
--- NOTE | 2023-05-15 08:49 | MHC.CM.ED ---
Addendum entered by Es Rios 05/15/23 12:26: No bed offers within 25 miles. Referral broadcasted within 50 miles of patient's residence to all facilities contracted with patient's insurance. Original Note: Patient remains in ER. No skill per physical therapy. Psych consult completed. Does not feel patient has the capacity to make her own decisions. Patient has [facility] Long Term Option plan. Referral broadcasted to all facilities within 25 miles of patient's address for bed availability. Continue to monitor for d/c needs.
[2023-05-15] MEDS: amLODIPine Besylate 5 MG TABLET PO (09:31)
[2023-05-15] MEDS: Sertraline HCL 100 MG TABLET PO (09:31)
[2023-05-15] MEDS: Atorvastatin Calcium 80 MG TABLET PO (09:31)
[2023-05-15] MEDS: Folic Acid 1 MG TABLET PO (09:31)
[2023-05-15] MEDS: Memantine HCl 10 MG TABLET PO ×2 (09:32→20:51)
[2023-05-15] MEDS: Cholecalciferol (Vitamin D3) 25 MCG TABLET 50 MCG PO (09:32)
--- NOTE | 2023-05-15 09:39 | PC.NURSE ---
Pt medication compliant, pending a medication from pharmacy, stated they will bring up. at bed side. call chaudhry with in reach. denied any pain or discomfort.
[2023-05-15 09:49] LABS: COVID-19 Test Negative (Negative); IDNOW Serial# 9DB6401D
[2023-05-15] MEDS: Donepezil HCl 10 MG TABLET PO (09:51)
[2023-05-15 15:11] VITALS: BP 132/61; PULSE 50; RESP 16; TEMP 36.6; O2SAT 100
[2023-05-15 20:49] VITALS: RESP 16
--- NOTE | 2023-05-15 20:50 | MHC.EDTECH ---
pt ambulated to br with t/w outside br for redirection. pt ambulates independently, but forgetful of location of room. pt provided with water, blankets, and call chaudhry.
[2023-05-15] MEDS: traZODone HCL 50 MG TABLET PO (20:51)
[2023-05-16 06:48] VITALS: BP 128/56; PULSE 50; RESP 16; O2SAT 98
--- NOTE | 2023-05-16 09:14 | MHC.CM.ED ---
Addendum entered by Es Rios 05/16/23 14:30: Patient does not have [facility] long term options. Patient has [facility] medicare advantage plan. Verified that patient has [facility] Senior Buy In. This also helps with Medicare premiums. Family will need to meet with [facility] [place] counselors in order to convert [facility] to LTC. Original Note: Patient remains in ER. Received voicemail from Mera from [facility] requesting a call back at [phone]. Explained patient was found not to have capacity to make her own decisions. Also explained [facility] [place] in the process of trying to find LTC placement. Ldys verbalized understanding. Continue to monitor for d/c needs.
--- NOTE | 2023-05-16 09:37 | PC.NURSE ---
pt continues to sleep at this time. resp even and unlabored. nad
[2023-05-16] MEDS: Folic Acid 1 MG TABLET PO (11:12)
[2023-05-16] MEDS: amLODIPine Besylate 5 MG TABLET PO (11:12)
[2023-05-16] MEDS: Cholecalciferol (Vitamin D3) 25 MCG TABLET 50 MCG PO (11:13)
[2023-05-16] MEDS: Memantine HCl 10 MG TABLET PO ×2 (11:13→20:48)
[2023-05-16] MEDS: Sertraline HCL 100 MG TABLET PO (11:13)
[2023-05-16] MEDS: Atorvastatin Calcium 80 MG TABLET PO (11:13)
--- NOTE | 2023-05-16 11:13 | PC.NURSE ---
Just assumed care of patient. Patient is awake eating. camera and clinical trial head at bedside.
[2023-05-16] MEDS: Donepezil HCl 10 MG TABLET PO (11:21)
[2023-05-16 11:23] VITALS: BP 128/56; PULSE 50; O2SAT 98
[2023-05-16 16:07] VITALS: BP 102/42; PULSE 55; RESP 16; TEMP 36.9; O2SAT 97
--- NOTE | 2023-05-16 16:08 | PC.NURSE ---
Pt arrived to overflow unit via bed. Alert oriented to person. Pleasant in conversation. Denies pain. Call chaudhry in place
--- NOTE | 2023-05-16 17:44 | PC.NURSE ---
Pt resting quietly in bed coloring
[2023-05-16] MEDS: traZODone HCL 50 MG TABLET PO (20:49)
[2023-05-16 21:33] VITALS: BP 94/48; PULSE 50; RESP 12; TEMP 37.2; O2SAT 96
[2023-05-17 05:42] VITALS: BP 92/38; PULSE 55; RESP 16; TEMP 36; O2SAT 97
--- NOTE | 2023-05-17 05:59 | PC.NURSE ---
Pt slept during the shift, pt b/p sbp 92, denies any complaints
[2023-05-17] MEDS: Sertraline HCL 100 MG TABLET PO (08:19)
[2023-05-17] MEDS: amLODIPine Besylate 5 MG TABLET PO (08:19)
[2023-05-17] MEDS: Memantine HCl 10 MG TABLET PO ×2 (08:19→20:12)
[2023-05-17] MEDS: Cholecalciferol (Vitamin D3) 25 MCG TABLET 50 MCG PO (08:20)
[2023-05-17] MEDS: Donepezil HCl 10 MG TABLET PO (08:20)
[2023-05-17] MEDS: Folic Acid 1 MG TABLET PO (08:21)
[2023-05-17] MEDS: Atorvastatin Calcium 80 MG TABLET PO (08:21)
--- NOTE | 2023-05-17 08:21 | PC.NURSE ---
pt alert and oriented to self and situation - pt unaware of what year it is. pt verbalizing no pain at the moment. medications administered per provider order. pt resting comfortably with breakfast tray/lights dimmed. call chaudhry placed within reach.
--- NOTE | 2023-05-17 09:27 | PC.NURSE ---
pt resting comfortably watching tv. eye in the rocio bedside. bed alarm turned on. call chaudhry placed within reach.
--- NOTE | 2023-05-17 11:38 | PC.NURSE ---
pt currently sleeping with no signs of apparent distress. video camera/monitor present bedside. bed alarm turned on. call chaudhry placed within reach.
--- NOTE | 2023-05-17 13:10 | PC.NURSE ---
pt resting comfortably in no apparent distress. bed alarm turned on. video/monitor bedside. call chaudhry placed within reach.
--- NOTE | 2023-05-17 13:37 | PC.NURSE ---
pt's brother bedside visiting w/ pt.
[2023-05-17 14:01] VITALS: BP 100/54; PULSE 56; RESP 14; TEMP 36.3; O2SAT 100
[2023-05-17 16:00] VITALS: BP 112/64; PULSE 72; RESP 16; TEMP 36.8; O2SAT 97
--- NOTE | 2023-05-17 16:18 | MHC.EDTECH ---
THIS PCT ASSUMED CARE OF PT AT 1500 ,VITALS SIGN TAKEN ,PT IS COMFORTABLE AND IS DOING SOME COLORING .
--- NOTE | 2023-05-17 18:40 | MHC.EDTECH ---
PT WAS SUP TO BATHROOM VOID LG AMOUNT OF URINE ,BACK TO BED .
[2023-05-17] MEDS: traZODone HCL 50 MG TABLET PO (20:12)
--- NOTE | 2023-05-17 21:17 | PC.NURSE ---
Assumed care at 1900. Ambulated to bathroom - steady gait, standby assist. Brief given to pt d/t small amount of incontinence. Alert, oriented to self only. Forgetful - continues to try to leave hospital, easily redirected back to bed. Medicated per NOV, currently resting comfortably, in no distress, call chaudhry in reach and warm blanket provided.
[2023-05-17 22:00] VITALS: BP 126/72; PULSE 68; RESP 16; TEMP 36.2; O2SAT 97
[2023-05-17] MEDS: diphenhydrAMINE HCL 25 MG CAPSULE 50 MG PO (22:17)
[2023-05-18 06:00] VITALS: BP 143/57; PULSE 45; RESP 18; TEMP 36.7; O2SAT 98
[2023-05-18] MEDS: Donepezil HCl 10 MG TABLET PO (10:00)
[2023-05-18] MEDS: Sertraline HCL 100 MG TABLET PO (10:00)
[2023-05-18] MEDS: Cholecalciferol (Vitamin D3) 25 MCG TABLET 50 MCG PO (10:00)
[2023-05-18] MEDS: Atorvastatin Calcium 80 MG TABLET PO (10:00)
[2023-05-18] MEDS: Folic Acid 1 MG TABLET PO (10:00)
[2023-05-18] MEDS: Memantine HCl 10 MG TABLET PO ×2 (10:00→20:33)
[2023-05-18] MEDS: amLODIPine Besylate 5 MG TABLET PO (10:00)
[2023-05-18 14:00] VITALS: BP 113/53; PULSE 50; RESP 16; TEMP 36.6; O2SAT 99
--- NOTE | 2023-05-18 14:27 | MHC.CM.ED ---
Pt continues holding in the ED pending payor source ([facility]) for LTC placement needs. Call placed to HCP Marisa to inquire on completion of application. No answer or ability to leave a message. Met with pt who offered no complaints and was having a snack and sitting with [facility] staff. CM to await call back from Marisa. No LTC offers made at this time.
--- NOTE | 2023-05-18 19:13 | MHC.EDTECH ---
Assisted pt to and from bathroom.
[2023-05-18] MEDS: traZODone HCL 50 MG TABLET PO (20:33)
[2023-05-18 20:39] VITALS: BP 105/48; PULSE 52; RESP 15; TEMP 36.4; O2SAT 97
[2023-05-19 06:00] VITALS: BP 110/50; PULSE 52; RESP 18; TEMP 36.4; O2SAT 99
[2023-05-19 07:34] VITALS: BP 102/56; PULSE 43; RESP 18; TEMP 36.9; O2SAT 99
[2023-05-19] MEDS: Sertraline HCL 100 MG TABLET PO (09:12)
[2023-05-19] MEDS: Folic Acid 1 MG TABLET PO (09:12)
[2023-05-19] MEDS: Donepezil HCl 10 MG TABLET PO (09:12)
[2023-05-19] MEDS: Memantine HCl 10 MG TABLET PO ×2 (09:12→20:16)
[2023-05-19] MEDS: amLODIPine Besylate 5 MG TABLET PO (09:12)
[2023-05-19] MEDS: Atorvastatin Calcium 80 MG TABLET PO (09:12)
[2023-05-19] MEDS: Cholecalciferol (Vitamin D3) 25 MCG TABLET 50 MCG PO (09:13)
[2023-05-19 12:56] VITALS: BP 121/47; PULSE 50; RESP 18; TEMP 36.1; O2SAT 100
[2023-05-19 16:25] VITALS: BP 102/55; PULSE 49; RESP 17; TEMP 36.5; O2SAT 98
[2023-05-19] MEDS: traZODone HCL 50 MG TABLET PO (20:16)
[2023-05-20 06:00] VITALS: BP 110/48; PULSE 45; RESP 20; TEMP 36.2; O2SAT 98
[2023-05-20 08:14] VITALS: BP 103/44; PULSE 44; RESP 16; TEMP 36.3; O2SAT 97
[2023-05-20] MEDS: Cholecalciferol (Vitamin D3) 25 MCG TABLET 50 MCG PO (10:00)
[2023-05-20] MEDS: Memantine HCl 10 MG TABLET PO ×2 (10:00→20:14)
[2023-05-20] MEDS: Atorvastatin Calcium 80 MG TABLET PO (10:00)
[2023-05-20] MEDS: Donepezil HCl 10 MG TABLET PO (10:00)
[2023-05-20] MEDS: Folic Acid 1 MG TABLET PO (10:00)
[2023-05-20] MEDS: Sertraline HCL 100 MG TABLET PO (10:01)
[2023-05-20 14:00] VITALS: BP 104/45; PULSE 50; RESP 14; TEMP 36.1; O2SAT 97
--- NOTE | 2023-05-20 15:47 | MHC.CM.ED ---
Pt is holding in the ED waiting for [facility] and LTC placement. Call placed to pt's brother, Marisa who states he has an appointment with [facility] financial counseling on Monday, 05/24 and has been working to get Francisca's financial information to assist w/the application for Medicaid. ED CM to follow.
--- NOTE | 2023-05-20 18:36 | PC.NURSE ---
Patient calm and cooperative, ambulated to the bathroom, stand by assist. Spent most of the day in bed with no complaints.
--- NOTE | 2023-05-20 19:41 | PC.NURSE ---
I assumed care of the pt at 190. Pt is resting comfortably in bed at this time. Alert to self. Pt did stand out of bed and start to walk around, when asked where she was going, she replied I don't know and was redirected back to bed. Pt is now in bed, alert to self and forgetful. Pt is waiting for LTC placement.
[2023-05-20] MEDS: traZODone HCL 50 MG TABLET PO (20:14)
[2023-05-20 20:33] VITALS: BP 111/50; PULSE 49; RESP 15; TEMP 36.6; O2SAT 97
[2023-05-21 06:00] VITALS: BP 146/60; PULSE 41; RESP 16; TEMP 36.3; O2SAT 100
[2023-05-21] MEDS: Sertraline HCL 100 MG TABLET PO (09:02)
[2023-05-21] MEDS: Folic Acid 1 MG TABLET PO (09:02)
[2023-05-21] MEDS: Memantine HCl 10 MG TABLET PO ×2 (09:02→20:30)
[2023-05-21] MEDS: Donepezil HCl 10 MG TABLET PO (09:03)
[2023-05-21] MEDS: Cholecalciferol (Vitamin D3) 25 MCG TABLET 50 MCG PO (09:03)
[2023-05-21] MEDS: amLODIPine Besylate 5 MG TABLET PO (09:03)
[2023-05-21] MEDS: Atorvastatin Calcium 80 MG TABLET PO (09:03)
[2023-05-21 09:06] VITALS: BP 107/49
[2023-05-21 14:00] VITALS: BP 127/53; PULSE 50; RESP 16; TEMP 36.1; O2SAT 98
--- NOTE | 2023-05-21 18:26 | PC.NURSE ---
Patient asked to take shower this morning, was able to do so with minimal assistance, ambulating frequently around the unit with stand by assist.
--- NOTE | 2023-05-21 19:16 | MHC.EDTECH ---
Plan of care ongoing No further concerns as of present Pt expresses no other needs at this time Call light is in reach
--- NOTE | 2023-05-21 19:20 | MHC.EDTECH ---
Pt resting in bed respirations even and unlabored no distress noted plan of care ongoing
[2023-05-21] MEDS: traZODone HCL 50 MG TABLET PO (20:30)
[2023-05-21 20:34] VITALS: BP 121/54; PULSE 51; RESP 17; TEMP 36.7; O2SAT 100
[2023-05-22 06:18] VITALS: BP 128/56; PULSE 42; RESP 16; TEMP 36.4; O2SAT 99
[2023-05-22] MEDS: Sertraline HCL 100 MG TABLET PO (08:30)
[2023-05-22] MEDS: Donepezil HCl 10 MG TABLET PO (08:30)
[2023-05-22] MEDS: Cholecalciferol (Vitamin D3) 25 MCG TABLET 50 MCG PO (08:30)
[2023-05-22] MEDS: Atorvastatin Calcium 80 MG TABLET PO (08:30)
[2023-05-22] MEDS: Folic Acid 1 MG TABLET PO (08:30)
[2023-05-22] MEDS: amLODIPine Besylate 5 MG TABLET PO (08:30)
[2023-05-22] MEDS: Memantine HCl 10 MG TABLET PO ×2 (08:30→20:32)
--- NOTE | 2023-05-22 10:38 | MHC.EDTECH ---
Ambulated to bathroom to do AM care , Bed change and reposition .
[2023-05-22] MEDS: traZODone HCL 50 MG TABLET PO (20:32)
[2023-05-22 23:17] VITALS: BP 113/51; PULSE 50; RESP 16; TEMP 36.6; O2SAT 98
--- NOTE | 2023-05-23 03:08 | PC.NURSE ---
PT IS PLEASANTLY CONFUSED. WILL WAKE UP AND GET OOB BY SELF. VIDEO MONITORING USED. PT ASSISTED TO BATHROOM TO VOID. GAIT IS STEADY. VITAL SIGNS STABLE. PT GIVEN HS SNACK. TOOK HS MEDS WITH NO PROBLEM. SLEEPING IN NAPS.
[2023-05-23 06:00] VITALS: BP 116/56; PULSE 46; RESP 18; O2SAT 99
[2023-05-23] MEDS: Memantine HCl 10 MG TABLET PO ×2 (09:59→20:09)
[2023-05-23] MEDS: Folic Acid 1 MG TABLET PO (09:59)
[2023-05-23] MEDS: amLODIPine Besylate 5 MG TABLET PO (09:59)
[2023-05-23] MEDS: Cholecalciferol (Vitamin D3) 25 MCG TABLET 50 MCG PO (09:59)
[2023-05-23] MEDS: Sertraline HCL 100 MG TABLET PO (09:59)
[2023-05-23] MEDS: Atorvastatin Calcium 80 MG TABLET PO (09:59)
[2023-05-23] MEDS: Donepezil HCl 10 MG TABLET PO (10:00)
--- NOTE | 2023-05-23 11:33 | PC.NURSE ---
Assumed care at 07:00. Patient slept late. had breakfast late. All meds late. Fully compliant otherwise and ambulated to the with 1 assist standby
[2023-05-23 14:11] VITALS: BP 108/51; PULSE 51; RESP 16; TEMP 36.2; O2SAT 99
--- NOTE | 2023-05-23 17:03 | MHC.EDTECH ---
Brought patient a pitcher of ice water.
--- NOTE | 2023-05-23 18:09 | MHC.EDTECH ---
Brought patient warm blanket.
[2023-05-23] MEDS: traZODone HCL 50 MG TABLET PO (20:09)
[2023-05-23 22:00] VITALS: BP 86/54; PULSE 49; RESP 14; TEMP 37.3; O2SAT 97
[2023-05-23 23:02] VITALS: BP 96/50
--- NOTE | 2023-05-23 23:34 | PC.NURSE ---
Patient had a manual BP of 86/54 with a heart rate of 49. Patient has no complaints on lightheadedness or dizziness and is resting quietly in bed. MD notified and ordered to recheck BP. BP rechecked at 23:00 and was 96/50 with no complaints of lightheadedness or dizziness. MD notified and no further orders placed.
[2023-05-24 06:00] VITALS: BP 111/55; PULSE 44; RESP 14; TEMP 36.1; O2SAT 99
[2023-05-24 08:37] VITALS: BP 90/53; PULSE 48; RESP 16; TEMP 36.8; O2SAT 99
[2023-05-24] MEDS: Donepezil HCl 10 MG TABLET PO (08:48)
[2023-05-24] MEDS: Atorvastatin Calcium 80 MG TABLET PO (08:48)
[2023-05-24] MEDS: Memantine HCl 10 MG TABLET PO ×2 (08:49→20:13)
[2023-05-24] MEDS: Folic Acid 1 MG TABLET PO (08:49)
[2023-05-24] MEDS: Sertraline HCL 100 MG TABLET PO (08:49)
[2023-05-24] MEDS: Cholecalciferol (Vitamin D3) 25 MCG TABLET 50 MCG PO (08:49)
--- NOTE | 2023-05-24 09:00 | PC.NURSE ---
Assumed care of patient at 0700. A & Ox3. Speaking in full sentences. Respirations even and unlabored. Lungs - CTA in all herrera. No SOB noted. Had a decreased HR, 48, and BP of 90/53, AM amlodipine held. MLP to be updated. Skin pink, warm, and dry. No bruises or abrasions noted. No edema noted. Brother and sister in law briefly visited pt.
[2023-05-24 10:35] VITALS: BP 103/49; PULSE 47
--- NOTE | 2023-05-24 14:02 | MHC.CM.ED ---
Patient remains in ER overflow. Family has been working with Morelia [facility] [place]. [facility] application should be completed today. Morelia will provide a copy of application to . Service Member will resend referral for LTC when this is obtained. Continue to monitor for d/c needs.
[2023-05-24 14:31] VITALS: BP 101/45; PULSE 48; RESP 14; TEMP 36.2; O2SAT 97
[2023-05-24] MEDS: traZODone HCL 50 MG TABLET PO (20:13)
[2023-05-24 21:14] VITALS: BP 113/58; PULSE 50; RESP 15; TEMP 36.6; O2SAT 98
[2023-05-25] MEDS: amLODIPine Besylate 5 MG TABLET PO (10:30)
[2023-05-25] MEDS: Donepezil HCl 10 MG TABLET PO (10:30)
[2023-05-25] MEDS: Cholecalciferol (Vitamin D3) 25 MCG TABLET 50 MCG PO (10:30)
[2023-05-25] MEDS: Sertraline HCL 100 MG TABLET PO (10:30)
[2023-05-25] MEDS: Folic Acid 1 MG TABLET PO (10:30)
[2023-05-25] MEDS: Memantine HCl 10 MG TABLET PO ×2 (10:30→21:48)
[2023-05-25] MEDS: Atorvastatin Calcium 80 MG TABLET PO (10:30)
--- NOTE | 2023-05-25 11:39 | PC.NURSE ---
amb oob to br, independent is forgetful but easily redirected. Tolerating po
[2023-05-25 16:00] VITALS: BP 103/63; PULSE 52; RESP 16; TEMP 36.5; O2SAT 98
--- NOTE | 2023-05-25 16:21 | MHC.EDTECH ---
this pct assumed care of pt at 1500 ,patient up in recliner watching television and having a snack ,vitals sign taken .
--- NOTE | 2023-05-25 18:35 | PC.NURSE ---
amb oob to br without assist, has been tolerating po calm and cooperative
[2023-05-25 20:03] VITALS: BP 102/58; PULSE 53; RESP 20; TEMP 36.6
[2023-05-25] MEDS: traZODone HCL 50 MG TABLET PO (21:48)
--- NOTE | 2023-05-26 06:00 | PC.NURSE ---
This RN assumed care at 1900. Patient ambulates around unit, calm and pleasant. Patient medication compliant and was safe on checks. RN gave report to Mariangel IBARRA at 0000.
[2023-05-26 06:50] VITALS: BP 140/93; PULSE 70; RESP 18; TEMP 36.7
--- NOTE | 2023-05-26 07:11 | PC.NURSE ---
Assumed care 00:00 on 05/26. Pt continues in ED overflow. Breathing even and unlabored without distress. Pt slept most of the night. Bed alarm on for safety. Handoff report given 06:45.
[2023-05-26] MEDS: amLODIPine Besylate 5 MG TABLET PO (09:14)
[2023-05-26] MEDS: Sertraline HCL 100 MG TABLET PO (09:14)
[2023-05-26] MEDS: Donepezil HCl 10 MG TABLET PO (09:14)
[2023-05-26] MEDS: Folic Acid 1 MG TABLET PO (09:15)
[2023-05-26] MEDS: Memantine HCl 10 MG TABLET PO ×2 (09:15→21:52)
[2023-05-26] MEDS: Atorvastatin Calcium 80 MG TABLET PO (09:15)
[2023-05-26] MEDS: Cholecalciferol (Vitamin D3) 25 MCG TABLET 50 MCG PO (10:33)
[2023-05-26 13:53] VITALS: BP 136/47; PULSE 52; RESP 16; TEMP 36.7; O2SAT 96
--- NOTE | 2023-05-26 18:45 | PC.NURSE ---
Patient confused but calm and cooperative, continue ambulating on the unit, gets emotional at times and needs redirection.
[2023-05-26 21:40] VITALS: BP 115/60; PULSE 55; RESP 18; TEMP 37; O2SAT 99
[2023-05-26] MEDS: traZODone HCL 50 MG TABLET PO (21:52)
[2023-05-27 11:08] VITALS: BP 142/60; PULSE 43; RESP 16; TEMP 36; O2SAT 98
[2023-05-27] MEDS: Cholecalciferol (Vitamin D3) 25 MCG TABLET 50 MCG PO (11:15)
[2023-05-27] MEDS: Donepezil HCl 10 MG TABLET PO (11:15)
[2023-05-27] MEDS: Memantine HCl 10 MG TABLET PO ×2 (11:15→20:40)
[2023-05-27] MEDS: amLODIPine Besylate 5 MG TABLET PO (11:15)
[2023-05-27] MEDS: Folic Acid 1 MG TABLET PO (11:15)
[2023-05-27] MEDS: Atorvastatin Calcium 80 MG TABLET PO (11:15)
[2023-05-27] MEDS: Sertraline HCL 100 MG TABLET PO (11:16)
--- NOTE | 2023-05-27 11:19 | PC.NURSE ---
resting in bed- talking w/o issue- ate breakfast. walked well to the bathroom- voided well. no distress noted. no pain. +CMS.a/o to self/knows in a hospital and in [place]/familiar with city, needs reminder of exact situation. no irinking water well.ncontinence.d
--- NOTE | 2023-05-27 13:30 | PC.NURSE ---
pt awake watching tv and eating lunch. no distress
[2023-05-27 15:51] VITALS: BP 110/54; PULSE 50; RESP 16; TEMP 36.2; O2SAT 97
--- NOTE | 2023-05-27 17:05 | PC.NURSE ---
Resumed care at approximately 1500. Pt alert and awake, forgetful but pleasant. Pt OOB with SBA and a steady gait. Pt eating supper. Currently resting in bed with no acute distress. Will continue with the plan of care.
[2023-05-27] MEDS: traZODone HCL 50 MG TABLET PO (20:40)
[2023-05-27 21:20] VITALS: BP 125/50; PULSE 52; RESP 14; TEMP 36.6; O2SAT 96
--- NOTE | 2023-05-28 02:25 | PC.NURSE ---
Assumed care at 1900. Patient A&O x1 , forgetful at times. Walks with steady gait OOB to BR. No c/o pain. Patient resting comfortably, continue with plan of care.
[2023-05-28 06:11] VITALS: BP 112/56; PULSE 70; RESP 16; TEMP 36.8; O2SAT 99
[2023-05-28] MEDS: Atorvastatin Calcium 80 MG TABLET PO (09:14)
[2023-05-28] MEDS: Cholecalciferol (Vitamin D3) 25 MCG TABLET 50 MCG PO (09:14)
[2023-05-28] MEDS: Sertraline HCL 100 MG TABLET PO (09:14)
[2023-05-28] MEDS: Memantine HCl 10 MG TABLET PO ×2 (09:15→20:32)
[2023-05-28] MEDS: Donepezil HCl 10 MG TABLET PO (09:15)
[2023-05-28] MEDS: Folic Acid 1 MG TABLET PO (09:15)
[2023-05-28 09:18] VITALS: BP 124/61; PULSE 42; O2SAT 99
[2023-05-28] MEDS: amLODIPine Besylate 5 MG TABLET PO (09:23)
[2023-05-28 14:00] VITALS: BP 112/51; PULSE 68; TEMP 36.3; O2SAT 99
--- NOTE | 2023-05-28 15:04 | PC.NURSE ---
pt oob to bathroom, steady gait. male visitor at bedside. denies pain. pt resting quietly in bed at this time, no apparent distress. continue with plan of care.
[2023-05-28] MEDS: traZODone HCL 50 MG TABLET PO (20:32)
[2023-05-28 22:21] VITALS: BP 90/49; PULSE 49; RESP 18; TEMP 37.1; O2SAT 95
[2023-05-29 06:00] VITALS: BP 103/54; PULSE 66; RESP 18; TEMP 36.2; O2SAT 98
[2023-05-29 08:31] VITALS: BP 96/52; PULSE 41; RESP 16; TEMP 36.8; O2SAT 98
[2023-05-29] MEDS: Folic Acid 1 MG TABLET PO (08:57)
[2023-05-29] MEDS: Atorvastatin Calcium 80 MG TABLET PO (08:57)
[2023-05-29] MEDS: amLODIPine Besylate 5 MG TABLET PO (08:57)
[2023-05-29] MEDS: Donepezil HCl 10 MG TABLET PO (08:57)
[2023-05-29] MEDS: Cholecalciferol (Vitamin D3) 25 MCG TABLET 50 MCG PO (08:57)
[2023-05-29] MEDS: Sertraline HCL 100 MG TABLET PO (08:57)
[2023-05-29] MEDS: Memantine HCl 10 MG TABLET PO ×2 (08:57→20:00)
--- NOTE | 2023-05-29 15:32 | MHC.CM.ED ---
Patient remains in ER overflow. Copy of MH application obtained from Morelia of [facility] financial counseling. LTC referrral will be resent. Continue to monitor for d/c needs.
[2023-05-29 16:43] VITALS: BP 138/60; PULSE 52; RESP 14; TEMP 36.6; O2SAT 97
[2023-05-29] MEDS: traZODone HCL 50 MG TABLET PO (20:00)
--- NOTE | 2023-05-29 22:34 | PC.NURSE ---
Patient alert and oriented, forgetful. Denies pain or discomfort at this time, l/s dim on room air. Medicated per nov, callbell within reach. OOB with 1 assist, steady gait.
[2023-05-30 06:00] VITALS: BP 135/74; PULSE 80; RESP 18; TEMP 36; O2SAT 98
[2023-05-30] MEDS: Atorvastatin Calcium 80 MG TABLET PO (09:55)
[2023-05-30] MEDS: Folic Acid 1 MG TABLET PO (09:55)
[2023-05-30] MEDS: Sertraline HCL 100 MG TABLET PO (09:55)
[2023-05-30] MEDS: Memantine HCl 10 MG TABLET PO ×2 (09:55→20:15)
[2023-05-30] MEDS: Cholecalciferol (Vitamin D3) 25 MCG TABLET 50 MCG PO (09:55)
[2023-05-30] MEDS: amLODIPine Besylate 5 MG TABLET PO (09:55)
[2023-05-30] MEDS: Donepezil HCl 10 MG TABLET PO (09:56)
[2023-05-30 13:44] VITALS: BP 124/63; RESP 20; TEMP 36.7; O2SAT 98
--- NOTE | 2023-05-30 14:28 | MHC.CM.ED ---
Addendum entered by Es Rios 05/30/23 15:06: Copy of POA obtained and sent to [facility]. Original Note: Patient remains in ER overflow. [facility] on-site to visit patient. They feel they can offer patient a bed once a copy of patient's POA is obtained. Morelia from [facility] financial counseling has a copy of POA and will provide it to CM. MDS completed. Sent to [facility] and [facility]. Level 1 completed. Patient's brother/HCP, Marisa aware and accepts bed at [facility]. Continue to monitor for d/c needs.
--- NOTE | 2023-05-30 18:41 | PC.NURSE ---
Assumed care at 07:00. Patient alert, pleasant, some tearfulness today, forgetful, follows commands, ambulates with steady gait, ate well. Oriented to person and place. Wanders, ambulates with 1 standby assist. Was seen by [place] staff today.
[2023-05-30] MEDS: traZODone HCL 50 MG TABLET PO (20:15)
[2023-05-30 21:36] VITALS: BP 126/70; PULSE 56; RESP 18; TEMP 36.1; O2SAT 100
--- NOTE | 2023-05-31 01:23 | PC.NURSE ---
Assumed care at 1900, patient alert to person, forgetful at times. Walks with stand by assist. Resting quietly at present. Call chaudhry within reach.
[2023-05-31 06:00] VITALS: BP 106/44; PULSE 72; RESP 20; TEMP 36.2; O2SAT 99
[2023-05-31] MEDS: Memantine HCl 10 MG TABLET PO ×2 (07:59→19:45)
[2023-05-31] MEDS: Donepezil HCl 10 MG TABLET PO (07:59)
[2023-05-31] MEDS: Cholecalciferol (Vitamin D3) 25 MCG TABLET 50 MCG PO (07:59)
[2023-05-31] MEDS: Atorvastatin Calcium 80 MG TABLET PO (07:59)
[2023-05-31] MEDS: Folic Acid 1 MG TABLET PO (08:00)
[2023-05-31] MEDS: Sertraline HCL 100 MG TABLET PO (08:00)
[2023-05-31] MEDS: amLODIPine Besylate 5 MG TABLET PO (08:00)
[2023-05-31 08:48] VITALS: BP 112/66; PULSE 50; RESP 16; TEMP 36.5; O2SAT 98
[2023-05-31 14:00] VITALS: BP 100/60; PULSE 55; RESP 16; TEMP 36.4; O2SAT 99
--- NOTE | 2023-05-31 15:19 | MHC.CM.ED ---
Patient remains in ER overflow. [facility]. However, they have to submit for auth for [facility] first. It is anticipated it will be denied. But they need this denial before they are able to accept patient. Patient's brother/HCP, Marisa will need to sign patient into facility upon admissions. Marisa will also need to provide a television and telephone for patient. Marisa made aware of all of this information and is agreeable. Continue to monitor for d/c needs.
[2023-05-31] MEDS: traZODone HCL 50 MG TABLET PO (19:45)
[2023-05-31 21:00] VITALS: BP 101/60; PULSE 51; RESP 16; TEMP 36.5; O2SAT 95
[2023-06-01 05:51] VITALS: BP 100/52; PULSE 55; RESP 17; TEMP 36.4; O2SAT 97
[2023-06-01 08:00] VITALS: BP 128/55; PULSE 44; O2SAT 97
[2023-06-01] MEDS: Memantine HCl 10 MG TABLET PO ×2 (08:16→20:19)
[2023-06-01] MEDS: Donepezil HCl 10 MG TABLET PO (08:16)
[2023-06-01] MEDS: Cholecalciferol (Vitamin D3) 25 MCG TABLET 50 MCG PO (08:16)
[2023-06-01] MEDS: Sertraline HCL 100 MG TABLET PO (08:16)
[2023-06-01] MEDS: Folic Acid 1 MG TABLET PO (08:16)
[2023-06-01] MEDS: Atorvastatin Calcium 80 MG TABLET PO (08:16)
[2023-06-01] MEDS: amLODIPine Besylate 5 MG TABLET PO (08:17)
--- NOTE | 2023-06-01 16:13 | MHC.CM.ED ---
Patient remains in ER overflow. Will transfer to [facility] tomorrow 06/02 at 1230pm. Magda DAVIS booked. [facility] with chart. Patient, brother/HCP Andreas Cunningham RN and Ranjana SUAZO aware. Marisa will be at [facility] between 1230-1 to sign consents. Facillity aware. Continue to monitor for d/c needs.
[2023-06-01 17:31] VITALS: BP 121/63; PULSE 53; RESP 18; TEMP 36.1; O2SAT 98
[2023-06-01] MEDS: traZODone HCL 50 MG TABLET PO (20:19)
[2023-06-01 22:00] VITALS: BP 107/67; PULSE 58; RESP 18; TEMP 35.8; O2SAT 97
--- NOTE | 2023-06-02 04:53 | PC.NURSE ---
Care Plan Nursing Note: Patient alert and oriented to self, forgetful. Ambulates to bathroom. Plan moving forward: Placement, [facility] [place] planned discharge 06/02 at 12:30 Fall Prevention Interventions: Lighting adjusted, room near RN station, bed in lowest/locked position, call chaudhry in reach nonskid socks when OOB, purposeful hourly rounding, bed alarm, video monitoring Assistance (level of assistance required for transfers and ambulation): 1 assist Supervision (direct monitoring required for toileting and ADLs): set-up, and redirection
[2023-06-02 06:01] VITALS: BP 104/55; PULSE 46; RESP 18; TEMP 36; O2SAT 99
[2023-06-02 10:59] VITALS: BP 163/92; PULSE 46; RESP 18; O2SAT 97
[2023-06-02] MEDS: Atorvastatin Calcium 80 MG TABLET PO (11:03)
[2023-06-02] MEDS: Cholecalciferol (Vitamin D3) 25 MCG TABLET 50 MCG PO (11:03)
[2023-06-02] MEDS: Folic Acid 1 MG TABLET PO (11:03)
[2023-06-02] MEDS: Memantine HCl 10 MG TABLET PO (11:04)
[2023-06-02] MEDS: Donepezil HCl 10 MG TABLET PO (11:04)
[2023-06-02] MEDS: Sertraline HCL 100 MG TABLET PO (11:04)
--- NOTE | 2023-06-02 11:13 | PC.NURSE ---
Pt alert to self and place. Ambulates steady gait, ambulated to bathroom with 1 standby assist. Denies any pain. Resting quietly in bed at this time. Amlodipine 5mg held d/t decreased HR of 46.
--- NOTE | 2023-06-02 12:17 | PC.NURSE ---
This RN gave report to Mary IBARRA at [place]
== END 2023-06-02 12:17 | disposition skilled nursing facility (03) ==
PROVIDERS: Physician Assistant Medical; Emergency Provider Emergency Medicine; PCP Internal Medicine
DX: F03.B0 Unspecified dementia, moderate, without behavioral disturbance, psychotic disturbance, mood disturbance, and anxiety (principal); R41.82 Altered mental status, unspecified; I10 Essential (primary) hypertension; E78.5 Hyperlipidemia, unspecified; R00.1 Bradycardia, unspecified; R26.81 Unsteadiness on feet; Z20.822 Contact with and (suspected) exposure to COVID-19; Z20.828 Contact with and (suspected) exposure to other viral communicable diseases; Z79.899 Other long term (current) drug therapy; Z87.891 Personal history of nicotine dependence
CPT/HCPCS: 36415; 70450; 80053; 81003; 85025; 87635; 93005; 97162; 99285

== ENCOUNTER → 2023-05-12 17:33 | Outpatient (BNV) | payer MEDICARE, SELFPAY | PROVIDERS: Emergency Provider Emergency Medicine; PCP Internal Medicine; Visit Provider Psychiatry & Neurology Psychiatry | DX: F03.B0 Unspecified dementia, moderate, without behavioral disturbance, psychotic disturbance, mood disturbance, and anxiety (principal) | CPT/HCPCS: 99284 ==

== ENCOUNTER 2024-07-14 15:52 | Emergency (ER) | payer MEDICARE, SELFPAY ==
[2024-07-14 16:00] VITALS: BP 131/41; BP 136/82; PULSE 50; PULSE 73; RESP 16; TEMP 36.8; O2SAT 98; BMI 28.3
--- NOTE | 2024-07-14 16:04 | ECG_ITS ---
Test Reason : FALL Blood Pressure : / mmHG Vent. Rate : 047 BPM Atrial Rate : 047 BPM P-R Int : 170 ms QRS Dur : 088 ms QT Int : 466 ms P-R-T Axes : 058 -18 006 degrees QTc Int : 412 ms Sinus bradycardia Otherwise normal ECG When compared with ECG of 12-MAY-2023 17:08, No significant change was found Referred By: Generic ED Physician Electronically Signed By:KORTNEY MOTNEZ
--- NOTE | 2024-07-14 16:20 | ED_ITS ---
HPI - Fall General Chief Complaint: Fall Stated Complaint: witnessed fall from snf, no loc or head strike Time Seen by Provider: 07/14/24 16:09 Source: patient Limitations: other (Dementia) History of Present Illness ED Provider: Twyla Badillo PA-C HPI Narrative: 69-year-old female with a history of dementia, constipation and hyperlipidemia presents after fall. Patient resides at [facility], she was walking outside with a staff member, she subsequently tripped and fell, she sustained an abrasion to the left forearm. Unclear if tetanus is up-to-date we will update. Patient has no physical concerns or complaints at this time Related Data Home Medications ?Medication ?Instructions ?Recorded ?Confirmed memantine 10 mg tablet 10 mg PO BID 12/22/20 05/12/23 donepezil 10 mg tablet 10 mg PO DAILY 05/12/23 05/12/23 trazodone 50 mg tablet 50 mg PO BEDTIME 05/12/23 05/12/23 Previous Rx's ?Medication ?Instructions ?Recorded mastectomy bra (bra, mastectomy) #1 ea 10/28/20 Bra With Left Mastectomy Posthesis #1 ea 04/21/21 mastectomy bra #1 ea 02/18/22 cholecalciferol (vitamin D3) 50 50 mcg PO DAILY #90 tabs 09/19/22 mcg (2,000 unit) tablet (Vitamin D3) sertraline 100 mg tablet 100 mg PO DAILY 90 days #90 tabs 12/05/22 rosuvastatin 20 mg tablet 20 mg PO DAILY 90 days #90 tabs 02/26/23 folic acid 1 mg tablet 1 mg PO DAILY 90 days #90 tabs 03/08/23 amlodipine 5 mg tablet 5 mg PO DAILY 90 days #90 tabs 03/16/23 Allergies Allergy/AdvReac Type Severity Reaction Status Date / Time No Known Allergies Allergy Verified 07/14/24 16:04 Review of Systems Review of Systems: Unable to obtain due to advanced dementia Yes all other systems are reviewed and are negative [facility] Past Medical History Attestation statement: The following information was validated with the patient. Medical History Anemia Constipation by delayed colonic transit Dementia Depression Dyslipidemia Essential hypertension History of breast cancer Hypovitaminosis D Insomnia Memory loss Mild major depression, single episode Urge urinary incontinence Surgical History H/O total mastectomy of left breast Family History Family History Father Diabetes Hypertension Cancer Mother Dementia Family/Other FH: mental illness Social History Social History Household Members: None Housing: Apartment Are you a primary before and after school daycare worker to a significant other at home: No Do you presently have visiting nurse or other home services: No Alcohol intake: never Patient Tobacco Use Status: Former Tobacco user Tobacco use type: Cigarette Cigarettes Per Day: 1 e-Cigarette/Vaping Use: Never Used Second Hand Smoke Exposure: No Advance Directives: Yes Advance Directives on File: Yes Advance Directives Date on File: 12/22/20 Do you have a plan to hurt others: No Plan service: No Current occupational status: unemployed Current occupational exposures/hazards: No Cognitive needs: No Hearing needs: No Vision needs: Yes Physical Exam Vital Signs: Vital Signs: Last Vital Signs Temp 98.3 F 07/14/24 16:00 Pulse 50 07/14/24 16:00 Resp 16 07/14/24 16:00 BP 131/41 L 07/14/24 16:00 Pulse Ox 98 07/14/24 16:00 O2 Del Method Room Air 07/14/24 16:00 BMI result Body Mass Index 28.3 Const: Other: Alert, well in appearance, no sign of head trauma Orientation/consciousness: oriented to person Resp: Other: Nonlabored respirations Cardio: Other: Normal peripheral perfusion Skin: Other: Warm dry no rash Neuro: General: oriented to person, no focal motor deficits and CN's II-XI intact bilaterally Extrem: Other: Moves all extremities independently, there was an abrasion noted over left forearm no longer bleeding, patient ambulatory without discomfort, she has an antalgic gait Psych: Other: Calm cooperative Medical Decision Making Medical Decision Making MDM Narrative: 69-year-old female with a history of dementia, constipation and hyperlipidemia presents after fall. Patient resides at [facility], she was walking outside with a staff member, she subsequently tripped and fell, she sustained an abrasion to the left forearm. Unclear if tetanus is up-to-date we will update. Patient has no physical concerns or complaints at this time Problem: Advanced dementia History: Per patient and EMS record I have considered the following differential diagnoses: Fracture, dislocation, abrasion, contusion, syncope Plan: Patient here after mechanical fall, she sustained an abrasion, her exam was unremarkable, there was no indication for imaging, thought about syncope, however fall was witnessed it was purely mechanical, no indication for labs or additional medical assessment. We will update her tetanus Discharge Plan Discharge Clinical Impression: Abrasion of forearm, left Patient Disposition: Home, Self-Care Instructions: Abrasion (ED) Additional Instructions: You sustained an abrasion of the left forearm. See home care instructions. Keep it clean and dry. Your tetanus vaccine was updated, it is valid for 10 years. Follow up with primary care as needed. Prescriptions: No Action cholecalciferol (vitamin D3) [Vitamin D3] 50 mcg (2,000 unit) tablet 50 mcg PO DAILY Qty: 90 2RF sertraline 100 mg tablet 100 mg PO DAILY 90 Days Qty: 90 1RF rosuvastatin 20 mg tablet 20 mg PO DAILY 90 Days Qty: 90 3RF folic acid 1 mg tablet 1 mg PO DAILY 90 Days Qty: 90 1RF amlodipine 5 mg tablet 5 mg PO DAILY 90 Days Qty: 90 3RF (DME) bra, mastectomy Crystals Qty: 1 6RF Rx Instructions: As Directed (DME) mastectomy bra Crystals Qty: 1 0RF Rx Instructions: As Directed donepezil 10 mg tablet 10 mg PO DAILY trazodone 50 mg tablet 50 mg PO BEDTIME memantine 10 mg tablet 10 mg PO BID (DME) Bra With Left Mastectomy Posthesis ask Qty: 1 0RF Rx Instructions: As Directed Print Language: Bhutanese
--- NOTE | 2024-07-14 16:20 | PC.NURSE ---
patient left elbow wrapped with non stick dressing and kerlex.
[2024-07-14] MEDS: Diphth,Pertus(ACell),Tet Adult 0.5 ML SYRINGE IM (16:52)
--- NOTE | 2024-07-14 18:27 | PC.NURSE ---
report given to María at [facility]
[2024-07-14 18:36] VITALS: BP 137/44; PULSE 51; RESP 16; TEMP 36.8; O2SAT 99
[2024-07-14 19:54] VITALS: BP 117/46; PULSE 50; RESP 12; TEMP 36.6; O2SAT 97
[2024-07-14 19:57] VITALS: BP 117/46; PULSE 50; RESP 12; TEMP 36.6; O2SAT 97
== END 2024-07-14 20:02 | disposition home or self-care (01) ==
PROVIDERS: Emergency Provider Emergency Medicine; PCP Internal Medicine
DX: S50.812A Abrasion of left forearm, initial encounter (principal); M25.572 Pain in left ankle and joints of left foot; R00.1 Bradycardia, unspecified; F03.90 Unspecified dementia, unspecified severity, without behavioral disturbance, psychotic disturbance, mood disturbance, and anxiety; W01.0XXA Fall on same level from slipping, tripping and stumbling without subsequent striking against object, initial encounter; Y93.89 Activity, other specified; Y92.098 Other place in other non-institutional residence as the place of occurrence of the external cause; Y99.8 Other external cause status; Z23 Encounter for immunization
CPT/HCPCS: 73610; 90471; 90715; 93005; 99284; 99285

== ENCOUNTER → 2024-07-14 16:04 | Outpatient (BNV) | payer MEDICARE, SELFPAY | PROVIDERS: Emergency Provider Emergency Medicine; PCP Internal Medicine; Visit Provider Internal Medicine | DX: R00.1 Bradycardia, unspecified (principal) | CPT/HCPCS: 93010 ==